=== PATIENT | female | born 1940 | race Hispanic/Latino ===

== ENCOUNTER 2023-03-01 07:13 | Day surgery (SDC) | payer MEDICARE ==
[~2023-03-01 07:13] MED LIST: EZALLOR SPRINKLE5 MG; TYLENOL500 MG PO
[2023-03-01 09:36] VITALS: BP 142/91
== END 2023-03-01 09:59 | disposition home or self-care (01) ==
LOC: ENDO 07:13 → ORM 08:00 → ENDO 08:00
PROVIDERS: ATTEND Surgery
PROC: 0DBH8ZX Excision of Cecum, Via Natural or Artificial Opening Endoscopic, Diagnostic (ICD-10-PCS; principal; 2023-03-01)
PROC: 3E0H8GC Introduction of Other Therapeutic Substance into Lower GI, Via Natural or Artificial Opening Endoscopic (ICD-10-PCS; 2023-03-01)
DX: D12.0 Benign neoplasm of cecum (principal); K64.8 Other hemorrhoids; E78.5 Hyperlipidemia, unspecified; Z86.010 Personal history of colon polyps